=== PATIENT | female | born 1965 | race Caucasian/White ===

== ENCOUNTER → 2020-10-28 12:38 | Outpatient (CLI) | payer OTHER, SELFPAY ==
--- NOTE | ~2020-10-28 | MM_ITS ---
EXAMINATION: MM screening juarez BI w praful HISTORY: Screening mammogram TECHNIQUE: Craniocaudal and mediolateral oblique 3-D tomosynthesis images were obtained and synthetic 2-D images were generated. CAD analysis was submitted and interpreted. COMPARISON: 07/16/2018, 10/22/2016, 11/18/2014 bilateral digital screening mammogram examinations BREAST PARENCHYMAL COMPOSITION: The breasts are extremely dense, which lowers the sensitivity of mamm ography. FINDINGS: Occasional bilateral benign calcifications. There is no evidence of suspicious mass, calcif ication, or architectural distortion to suggest malignancy in either breast. There has been no suspic ious interval change. IMPRESSION: 1. No mammographic evidence of malignancy. 2. Recommend routine screening mammography in one year. BI-RADS Category 2: Benign finding(s). Reviewed, dictated and finalized at location A.
== END ==
PROVIDERS: PCP Family Medicine; Visit Provider Nurse Practitioner
DX: Z12.31 Encounter for screening mammogram for malignant neoplasm of breast (principal)
CPT/HCPCS: 77063; 77067

== ENCOUNTER → 2021-01-17 10:34 | Outpatient (CLI) | payer OTHER, SELFPAY ==
--- NOTE | ~2021-01-17 | DEXA_ITS ---
Bone Density Report Name: Rozina Longoria Age: 55 Sex: Female Ethnicity: White Date of : 1965 Indication: postmenopausal osteoporosis; Referring Provider: AMANDA, XAVI Study: Bone densitometry was performed. Exam Date: January 17, 2021 Accession number: [id number] Bone Density: Region BMD T-score Z-score Classification AP Spine (L1-L4) 0.838 -1.9 -0.7 Osteopenia Femoral Neck (Left) 0.638 -1.9 -0.8 Osteopenia Total Hip (Left) 0.768 -1.4 -0.6 Osteopenia Femoral Neck (Right) 0.642 -1.9 -0.7 Osteopenia Total Hip (Right) 0.777 -1.4 -0.6 Osteopenia Total Hip Mean 0.773 -1.4 -0.6 Osteopenia World Health Organization criteria for BMD impression classify patients as: Normal (T-score at or above -1.0), Osteopenia (T-score between -1.0 and -2.5), or Osteoporosis (T-score at or below -2.5). 10-year Fracture Risk(1): Major Osteoporotic Fracture 7.3% Hip Fracture 0.8% Reported Risk Factors: [place] (), Neck BMD=0.642, BMI=21.4 (1) FRAX(R) Version 3.08. Fracture probability calculated for an untreated patient. Fracture probability may be lower if the patient has received treatment. Previous Exams: Region Exam Age BMD T-score BMD Change BMD Change Date g/cm2 vs Baseline vs Previous AP Spine(L1-L4) 01/17/2021 55 0.838 -1.9 -0.002 0.061* 12/16/2018 52 0.776 -2.5 -0.063* -0.063* 10/22/2016 50 0.839 -1.9 Total Hip(Left) 01/17/2021 55 0.768 -1.4 -0.021 0.026 12/16/2018 52 0.742 -1.6 -0.048* -0.048* 10/22/2016 50 0.790 -1.2 Total Hip(Right) 01/17/2021 55 0.777 -1.4 -0.020 0.030* 12/16/2018 52 0.747 -1.6 -0.050* -0.050* 10/22/2016 50 0.797 -1.2 *Denotes significance at 95% confidence level, LSC for AP Spine = 0.022 g/cm2, LSC for Total Hip = 0.027 g/cm2 Clinical Information Provided by Patient: Has used the following medications: Vitamin D, Calcium Patient maximum height was 66.0 Menopause Age: 49 Does not regularly consume dairy products Drinks caffeinated beverages Onset of menses at age 11 Number of children 3 Impression: The patient has low bone mass, based on the Total Spine T-score. The patient has an estimated ten-year risk of hip fracture of 0.8% and an estimated ten-year risk of major fracture of 7.3%, based on the WHO FRAX algorithm. No significant bone loss was observed.
== END ==
PROVIDERS: PCP Family Medicine; Visit Provider Nurse Practitioner
DX: M81.0 Age-related osteoporosis without current pathological fracture (principal); Z78.0 Asymptomatic menopausal state; M85.88 Other specified disorders of bone density and structure, other site; M85.852 Other specified disorders of bone density and structure, left thigh; M85.851 Other specified disorders of bone density and structure, right thigh
CPT/HCPCS: 77080

== ENCOUNTER 2023-09-04 07:00 | Day surgery (SDC) | payer OTHER, SELFPAY ==
[2023-08-27 14:55] VITALS: BMI 21.7
[2023-08-29 12:02] VITALS: BMI 21.7
--- NOTE | 2023-09-04 08:20 | WPDANESEPPF ---
Anes - Initial Pre Proc Eval Procedure: Operation Date: 09/04/23 09:30 Proposed Procedures p Esophagogastroduodenoscopy - Blaze Mcneal MD Date/Time: 09/04/23 08:20 Surgeon: Blaze Mcneal MD Pre Op Diagnosis: Upper Abdominal Pain Patient Data Age: 57 Gender: F Height: 1.68 m Weight: 61 kg Allergies Allergy/AdvReac Type Severity Reaction Status Date / Time alendronate sodium AdvReac Severe Abdominal Verified 09/04/23 08:28 [From Fosamax] Pain Home Medications Medication Instructions Recorded Confirmed Type crisaborole 2 % topical ointment 1 applic topical BID 04/07/19 09/04/23 History (Eucrisa) diphenhydramine HCl 50 mg capsule 50 mg PO QHS 08/31/20 09/04/23 History ([employer]om SleepGels) sucralfate 1 gram tablet (Carafate) 1 g PO Q4H PRN abdominal pain #90 12/21/21 09/04/23 Rx tabs alprazolam 0.25 mg tablet (Xanax) 0.25 mg PO BID PRN Anxiety 03/23/22 09/04/23 History ondansetron HCl 4 mg tablet 4 mg PO Q6H PRN nausea and 03/28/22 09/04/23 Rx vomiting #30 tabs celecoxib 200 mg capsule 200 mg PO DAILY #90 caps 06/05/23 09/04/23 Rx duloxetine 60 mg capsule,delayed 60 mg PO BID #180 caps 06/05/23 09/04/23 Rx release (Cymbalta) solifenacin 10 mg tablet 10 mg PO DAILY 06/05/23 09/04/23 History pregabalin 50 mg capsule (Lyrica) 100 mg PO BID 08/27/23 09/04/23 History omeprazole 40 mg capsule,delayed 40 mg PO BID PRN acid reflux 08/29/23 09/04/23 History release Patient hx anesthesia problems: none Family hx anesthesia problems: none Results Review: All pre-operative results and documents have been reviewed as part of the pre-operative evaluation. [facility] Past Medical History Medical History (Updated 09/04/23 @ 08:20 by Cezar Marks DO) Anxiety Chronic head pain Endometrial hyperplasia Osteopenia after menopause Family History Family History Other Diabetes mellitus Family history of congenital heart disease Family history of malignant neoplasm Social History Social History (Updated 08/27/23 @ 08:31 by Rhona Nuno MA) Social History: Caffeine-coffee daily Smoking status: Never smoker Alcohol intake: current Drinks per week: 7 Alcohol use details: wine Substance use: never Substance use type: does not use Do You Feel Safe in your Home?: Yes Lack of Transportation: No Lack of Food: Never True Current Housing: I Have Housing Concerned About Future Housing: No Difficulty Paying Gas/Electric Bills: No Difficulty Paying for Meds: No Currently Unemployed: No Education: High School Diploma/GED Living arrangements: with family Spiritual care concerns: No Anes - Eval Final PreProcedure Day of Procedure 09/04/23 08:20 Patient weight: normal Heart: regular rate and rhythm Lungs: clear to auscultation and normal air movement Airway: Mallampati scale class II Neurological: alert and oriented Last oral intake: >/= 8 hours ASA classification: II Emergent: no Anesthetic plan: proceed Anesthesia type and monitoring: general GIVS and standard monitoring Results Review: All pre-operative results and documents have been reviewed as part of the pre-operative evaluation. Informed Consent: The patient's anesthetic plan and its attendant risks and benefits were discussed with the patient/family/POA. Questions were solicited and answers provided to the satisfaction of the patient/family/POA.
[2023-09-04 08:33] VITALS: BP 120/64; PULSE 79; RESP 16; TEMP 37.2; O2SAT 99; BMI 21.4
[2023-09-04] MEDS: LACTATED RINGERS 1,000 ML 150 ML IV CONT (08:44)
--- NOTE | 2023-09-04 09:30 | PM.HPGS ---
History of Present Illness History of Present Illness Consent: Risks, benefits, and alternatives have been discussed and questions answered. Patient agrees to proceed with procedure. Chief complaint: Upper Abdominal Pain Narrative: Rozina Longoria is a 57 year old female referred for EGD. Patient has a long 30+ year history of epigastric pain is burning in nature. She did have an endoscopy more than 30 years ago. The results are not available for review. Patient has been maintained on omeprazole which fails to control her symptoms. More recently has had heartburn and substernal burning discomfort and regurgitation. This responds to supplemental Tums and antacids. Her dose of omeprazole was increased to40mg p.o. b.i.d. 1 week ago. 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 Family history noncontributory. Patient denies any dysphagia nor weight loss. EGD is now requested. Review of Systems Review of Systems: Review of systems noncontributory. [facility] Past Medical History Medical History (Updated 09/04/23 @ 09:32 by Blaze Mcneal MD) Anxiety Chronic head pain Endometrial hyperplasia Osteopenia after menopause Family History Family History Other Diabetes mellitus Family history of congenital heart disease Family history of malignant neoplasm Social History Social History (Updated 08/27/23 @ 08:31 by Rhona Nuno MA) Social History: Caffeine-coffee daily Smoking status: Never smoker Alcohol intake: current Drinks per week: 7 Alcohol use details: wine Substance use: never Substance use type: does not use Do You Feel Safe in your Home?: Yes Lack of Transportation: No Lack of Food: Never True Current Housing: I Have Housing Concerned About Future Housing: No Difficulty Paying Gas/Electric Bills: No Difficulty Paying for Meds: No Currently Unemployed: No Education: High School Diploma/GED Living arrangements: with family Spiritual care concerns: No Meds Home Medications and Allergies Home Medications Medication Instructions Recorded Confirmed Type crisaborole 2 % topical ointment 1 applic topical BID 04/07/19 09/04/23 History (Eucrisa) diphenhydramine HCl 50 mg capsule 50 mg PO QHS 08/31/20 09/04/23 History ([employer]om SleepGels) sucralfate 1 gram tablet (Carafate) 1 g PO Q4H PRN abdominal pain #90 12/21/21 09/04/23 Rx tabs alprazolam 0.25 mg tablet (Xanax) 0.25 mg PO BID PRN Anxiety 03/23/22 09/04/23 History ondansetron HCl 4 mg tablet 4 mg PO Q6H PRN nausea and 03/28/22 09/04/23 Rx vomiting #30 tabs celecoxib 200 mg capsule 200 mg PO DAILY #90 caps 06/05/23 09/04/23 Rx duloxetine 60 mg capsule,delayed 60 mg PO BID #180 caps 06/05/23 09/04/23 Rx release (Cymbalta) solifenacin 10 mg tablet 10 mg PO DAILY 06/05/23 09/04/23 History pregabalin 50 mg capsule (Lyrica) 100 mg PO BID 08/27/23 09/04/23 History omeprazole 40 mg capsule,delayed 40 mg PO BID PRN acid reflux 08/29/23 09/04/23 History release Allergies Allergy/AdvReac Type Severity Reaction Status Date / Time alendronate sodium AdvReac Severe Abdominal Verified 09/04/23 08:28 [From Fosamax] Pain Vital Signs Vital Signs - 24 hr 09/04/23 08:33 Temperature 99 F Pulse Rate 79 Respiratory Rate 16 Blood Pressure 120/64 Pulse Oximetry 99 Oxygen Delivery Room Air Exam Narrative: Physical exam reveals patient to be alert. Vital signs stable. HEENT exam is unremarkable. Patient is anicteric. Lungs are clear to auscultation and percussion. Heart is without murmur or extra sounds. Abdomen bowel sounds are present soft nontender with no organomegaly. Assessment and Plan Assessment and plan (1) Gastroesophageal reflux disease: Code(s): K21.9 - Gastro-esophageal reflux disease without esophagitis Status: Acute Assessment and Plan: Patient with epigastric and sub
[2023-09-04 09:52] VITALS: BP 101/56; PULSE 70; RESP 14; O2SAT 98
[2023-09-04 10:02] VITALS: BP 113/60; PULSE 73; RESP 15; O2SAT 99
[2023-09-04 10:12] VITALS: BP 109/65; PULSE 69; RESP 15; O2SAT 98
--- NOTE | 2023-09-04 11:17 | WPDANESPN ---
Anes - Prog Note Post-Op Date/Time: 09/04/23 11:17 Cardiovascular status: normal Respiratory status: normal Airway patency: baseline Mental status: baseline Post-Op hydration status: normal Vital Signs: Last Vital Signs Temp 37.2 C 09/04/23 08:33 Pulse 69 09/04/23 10:12 Resp 15 09/04/23 10:12 BP 109/65 09/04/23 10:12 Pulse Ox 98 09/04/23 10:12 O2 Del Method Room Air 09/04/23 10:12 Pain Score (VAS): 0 I/O: Intake & Output 09/03/23 09/04/23 09/04/23 23:59 07:59 15:59 Intake Total 100 Balance 100 Post-procedural complaints: none Patient Feedback: Patient satisfied with anesthetic care. Other Findings: Patient vital signs back to baseline. Patient denies nausea and vomiting. Patient's pain under control. Patient OK for discharge.
== END 2023-09-04 10:26 | disposition home or self-care (01) ==
PROVIDERS: PCP Family Medicine; Visit Provider Internal Medicine Gastroenterology
PROC: 0DJ08ZZ Inspection of Upper Intestinal Tract, Via Natural or Artificial Opening Endoscopic (ICD-10-PCS; CPT 43235; principal; 2023-09-04 09:30)
DX: K21.9 Gastro-esophageal reflux disease without esophagitis (principal); R10.13 Epigastric pain
CPT/HCPCS: 43239